=== PATIENT | female | born 1965 | race Asian ===

== ENCOUNTER 2016-05-28 14:56 | Emergency (ER) | payer BC ==
[~2016-05-28] VITALS: Ht 180.3 cm; Wt 96.2 kg
[2016-05-28 14:50] VITALS: TEMP 97.9
[2016-05-28] MEDS ORDERED: AMLO2.5T PO (15:18)
[2016-05-28] MEDS ORDERED: ASPIRIN325 M1 OR (15:19)
[2016-05-28 15:47] LABS: PLATELET COUNT 299 K/uL (152-353)
[2016-05-28 15:50] LABS: POTASSIUM 4.2 mmol/L (3.6-5.2); SODIUM 136 mmol/L (136-145)
[2016-05-28 16:45] VITALS: BP 150/88
== END 2016-05-28 16:55 | disposition home or self-care (01) ==
LOC: ED 14:56
PROVIDERS: Specialist
DX: B96.81 Helicobacter pylori [H. pylori] as the cause of diseases classified elsewhere (principal); R10.13 Epigastric pain
CPT/HCPCS: 36415; 80053; 82150; 83690; 85027; 86318; 93005; 99284